=== PATIENT | male | born 1980 | race Caucasian/White ===

== ENCOUNTER 2018-07-26 10:22 | Emergency (ER) | payer SELFPAY ==
[2018-07-26 10:31] VITALS: BP 124/85
--- NOTE | 2018-07-26 10:37 | EDPHY ---
H & P Time Seen by Provider: 07/26/18 10:31 HPI/ROS: HPI Prescription refill. 38-year-old male with history of depression presents to the emergency department asking for refill prescription for his Effexor. He recently moved here. He currently does not have a primary care physician but is planning on enrolling with [facility]. He denies any other complaints. He is not suicidal. He takes 150 mg XR daily. ROS: Constitutional: No fever, no chills. No weakness. Past medical history: Depression. Social history: Nonsmoker. No alcohol. Here by himself. Recently moved to the area. Physical Exam: General Appearance: Alert, no distress. This patient is responding to questions appropriately and in full sentences. This patient appears well- hydrated and well-nourished. Eyes: Pupils equal and round no pallor or injection. No lid edema, erythema or injection. Neurological: Motor sensory function is grossly intact. Cranial nerves are normal. Gait is normal. Skin: Warm and dry, no rashes. Extremities are symmetrical. All joints range without pain or impingement. Psychiatric: No agitation. No depression. Database: EKG: Imaging: Procedures: Emergency department course: Triage vital signs reviewed and are normal. The patient will be given a prescription for Effexor 150 mg, 20. I have instructed him to follow up with his primary care physician for continued management of his depression and medication prescription refills. Return to emergency department precautions reviewed with him. All of his questions were answered. He was discharged from the emergency department in good condition. Differential Diagnosis: The differential diagnosis on this patient includes but is not limited to prescription refill. Severe major depression, suicidal ideation unlikely. This represents a partial list of diagnoses considered. These considerations are based on history, physical exam, past history, reassessment and diagnostic testing. Constitutional: Initial Vital Signs Temperature (C) 37.3 C 07/26/18 10:29 Heart Rate 92 07/26/18 10:29 Respiratory Rate 18 07/26/18 10:29 Blood Pressure 124/85 H 07/26/18 10:29 O2 Sat (%) 94 07/26/18 10:29 O2 Delivery Mode Room Air Allergies/Adverse Reactions: No Known Allergies Allergy (Unverified 07/26/18 10:31) Home Medications: Medication Instructions Recorded Effexor Xr 04/20/19 Venlafaxine Xr [Effexor Xr] 150 mg PO DAILY #20 cap 07/26/18 Departure - Departure Disposition: Home, Routine, Self-Care Clinical Impression: Prescription refill, History of depression Condition: Good Instructions: Depression (ED) Additional Instructions: Read and follow provided instructions. Take medication as prescribed. Return to the emergency department for worsening symptoms or other serious concerns. Prescriptions: Venlafaxine Xr [Effexor Xr] 150 mg PO DAILY #20 cap
== END 2018-07-26 10:45 | disposition home or self-care (01) ==
LOC: CED 10:22
DX: Z76.0 Encounter for issue of repeat prescription (principal); F32.9 Major depressive disorder, single episode, unspecified
CPT/HCPCS: 99283-ER